=== PATIENT | male | born 1995 | race Caucasian/White ===

== ENCOUNTER 2020-11-27 09:25 | Emergency (ER) | payer SELFPAY ==
[~2020-11-27] VITALS: Ht 172.7 cm; Wt 90.0 kg
[2020-11-27] MEDS ORDERED: IBUPROFEN 600MG TABLET PO ONE (10:15)
[2020-11-27 10:24] VITALS: BP 125/81
== END 2020-11-27 11:20 | disposition home or self-care (01) ==
LOC: ER 09:38
DX: R68.89 Other general symptoms and signs (principal); V49.49XA Driver injured in collision with other motor vehicles in traffic accident, initial encounter; Y93.89 Activity, other specified; Y92.89 Other specified places as the place of occurrence of the external cause; Y99.8 Other external cause status; Z98.890 Other specified postprocedural states
CPT/HCPCS: 99282